=== PATIENT | female | born 1980 ===

== ENCOUNTER 2020-06-07 05:45 | Day surgery (SDC) | payer OTHER ==
[~2020-06-07 05:45] MED LIST: ADALAT CC30 MG PO; CANDESARTAN CILE8 MG; RESTORIL30 M1 PO; SYNTHROID112 MCG PO; TOPROL XL25 M1 PO
[2020-06-07] MEDS ORDERED: PERCOCET 5-3251 EACH PO (08:21)
[2020-06-07] MEDS ORDERED: RECTICARE30 GM TOP (08:21)
== END 2020-06-07 12:55 | disposition home or self-care (01) ==
LOC: CIR.AMB 05:45
PROVIDERS: ATTEND Surgery
DX: K60.3 Anal fistula (principal); Z20.822 Contact with and (suspected) exposure to COVID-19